=== PATIENT | female | born 1985 | race Caucasian/White ===

== ENCOUNTER 2016-09-27 10:59 | Emergency (ER) | payer SELFPAY ==
[~2016-09-27] VITALS: Ht 165.1 cm; Wt 97.5 kg
--- NOTE | 2016-09-27 11:11 | ED Upper Extremity ---
General Chief Complaint: Upper Extremity Stated Complaint: L ARM INJ Source: patient Exam Limitations: no limitations History of Present Illness Time seen by provider: 11:10 Initial Comments The chair she was sitting in a palpable liver backwards and struck her left elbow on the floor. She complains of left elbow pain. No other injury. Allergies and Home Medications Allergies Coded Allergies: No Known Drug Allergies (Unverified , 09/27/16) Home Medications No Active Prescriptions or Reported Meds Constitutional: no symptoms reported Musculoskeletal: joint pain Past Ehisqdo-Oangcy-Cakmdx Hx Patient Social History Alcohol Use: Denies Use Recreational Drug Use: No Smoking Status: Never a Smoker 2nd Hand Smoke Exposure: No Recent Foreign Travel: No Contact w/Someone Who Travel: No Recent Hopitalizations: No Immunizations Up To Date Tetanus Booster (TDap): Unknown Seasonal Allergies Seasonal Allergies: No Reviewed Nursing Assessment Reviewed/Agree w Nursing PMH: Yes Physical Exam Vital Signs Vital Sign - Last 12Hours 09/27/16 11:08 Temp 97.0 Pulse 106 Resp 18 B/P (MAP) 162/114 Pulse Ox 100 O2 Delivery Room Air Capillary Refill : General Appearance: WD/WN, mild distress Neck: supple Cardiovascular: regular rate, rhythm Respiratory: no respiratory distress Elbow/Forearm: bone tenderness (tender over entire elbow unable to move held in flexion.), pain, soft tissue tenderness, swelling Neurologic/Psychiatric: alert, normal mood/affect Skin: normal color Progress/Results/Core Measures Results/Orders My Orders Orders - ANALISA MARTINEZ MD Elbow, Left, 3 Views (09/27/16 11:10) Ibuprofen Tablet (Motrin Tablet) (09/27/16 11:15) Vital Signs/I&O Vital Sign - Last 12Hours 09/27/16 11:08 Temp 97.0 Pulse 106 Resp 18 B/P (MAP) 162/114 Pulse Ox 100 O2 Delivery Room Air Diagnostic Imaging Comments X-rays negative Departure Impression Impression: Primary Impression: Contusion of left elbow Disposition: 01 HOME, SELF-CARE Condition: Stable Departure-Patient Inst. Decision time for Depature: 11:25 Referrals: NO,LOCAL PHYSICIAN (PCP/Family) Primary Care Physician Patient Instructions: Contusion (DC) Add. Discharge Instructions: Ice and rest. If you may take diclofenac for pain unrelieved with over-the- counter medications. All discharge instructions reviewed with patient and/or family. Voiced understanding. Scripts Diclofenac Sodium (Diclofenac Sodium) 50 Mg Tablet. 50 MG PO BID Y for PAIN-SEVERE, #10 TAB Prov: ANALISA MARTINEZ MD 09/27/16 ANALISA MARTINEZ MD Sep 27, 2016 11:11
[2016-09-27] MEDS ORDERED: IBUPROFEN TABLET 200 MG TAB PO ONE (11:15)
[2016-09-27] MEDS ORDERED: DICL50TA6 PO (11:26)
[2016-09-27 11:33] VITALS: BP 162/114
--- NOTE | 2016-09-27 11:49 | Diagnostic Imaging Report ---
EXAMINATION: Left elbow INDICATION: Injury elbow pain 3 views were obtained. There is a slightly impacted fracture of the lateral aspect of the radial neck. There is also a nondisplaced fracture extending through the articular surface of the lateral half of the radial head. No other fracture or acute bony abnormality is identified. The posterior fat-pad is not elevated on the lateral view. The soft tissues are unremarkable. IMPRESSION: There is a slightly impacted fracture of the lateral aspect of the radial neck and a nondisplaced fracture through the articular surface of the radial head. There is no acute bony abnormality noted otherwise. Dictated by: Dictated on workstation # [id number]
== END 2016-09-27 11:29 | disposition home or self-care (01) ==
LOC: ER 11:02
DX: S52.125A Nondisplaced fracture of head of left radius, initial encounter for closed fracture (principal); S52.132A Displaced fracture of neck of left radius, initial encounter for closed fracture; W07.XXXA Fall from chair, initial encounter; Y92.009 Unspecified place in unspecified non-institutional (private) residence as the place of occurrence of the external cause; Y99.8 Other external cause status
CPT/HCPCS: 73080; 99283

== ENCOUNTER 2019-03-17 13:01 | Emergency (ER) | payer SELFPAY ==
[~2019-03-17] VITALS: Ht 165.1 cm; Wt 108.6 kg
[~2019-03-17 13:01] MED LIST: DICL50TA6 PO
--- NOTE | 2019-03-17 13:20 | ED Chest Pain ---
General Chief Complaint: Chest Pain Stated Complaint: CP, SOA Source: patient Exam Limitations: no limitations History of Present Illness Date Seen by Provider: Mar 17, 2019 Time Seen by Provider: 13:10 Initial Comments 34-year-old female resents with pain in her upper chest that goes to her left neck. She reports that it comes and goes. She does report some mild shortness of breath. Patient reports that she has a fast heartbeat. That she was seen at the [facility] and had a negative EKG and sent over here due to her fast heartbeat and shortness of breath. She does report that about a month ago to 6 weeks ago she started a new control pill. She denies any posterior calf pain. She denies any nausea vomiting. She does not get diaphoretic. The pain did not radiate to her back or shoulders. She denies any cough, fevers or chills. Allergies and Home Medications Allergies Coded Allergies: No Known Drug Allergies (Unverified , 09/27/16) Home Medications Diclofenac Sodium 50 Mg Tablet.dr, 50 MG PO BID PRN for PAIN-SEVERE Prescribed by: ANALISA MARTINEZ on 09/27/16 1126 Patient Home Medication List Home Medication List Reviewed: Yes Review of Systems Review of Systems Constitutional: No chills, No fever EENTM: No Symptoms Reported Respiratory: Shortness of Air, SOA With Exertion Cardiovascular: Chest Pain Gastrointestinal: Denies Nausea, Denies Vomiting Genitourinary: No Symptoms Reported Musculoskeletal: see HPI Endocrine: No Symptoms Reported Hematologic/Lymphatic: No Symptoms Reported Past Hhuwywr-Khbpqx-Svlegn Hx Past Med/Social Hx: Reviewed Nursing Past Med/Soc Hx Patient Social History 2nd Hand Smoke Exposure: No Recent Foreign Travel: No Contact w/Someone Who Travel: No Recent Hopitalizations: No Immunizations Up To Date Tetanus Booster (TDap): Unknown Seasonal Allergies Seasonal Allergies: No Past Medical History Surgeries: No Respiratory: No Cardiac: No Neurological: No Genitourinary: No Gastrointestinal: No Musculoskeletal: No Endocrine: No HEENT: No Cancer: No Psychosocial: No Integumentary: No Physical Exam Vital Signs Vital Signs - First Documented 03/17/19 13:03 Temp 36.8 Pulse 116 Resp 18 B/P (MAP) 144/95 (111) Pulse Ox 99 O2 Delivery Room Air Capillary Refill : Height, Weight, BMI Height: 5'5.00" Weight: 215lbs. oz. 97.393229du; BMI Method:Stated General Appearance: No Apparent Distress, WD/WN HEENT: PERRL/EOMI Neck: Non Tender, Supple Respiratory: Chest Non Tender, Lungs Clear, Normal Breath Sounds Cardiovascular: No Edema, Normal Peripheral Pulses, Tachycardia Gastrointestinal: Non Tender Extremity: Normal Capillary Refill, No Calf Tenderness Neurologic/Psychiatric: Alert, Oriented x3, No Motor/Sensory Deficits, Normal Mood/Affect, software quality assurance analyst II-XII Norm as Tested Skin: Normal Color, Warm/Dry Progress/Results/Core Measures Results/Orders Lab Results Laboratory Tests Test 03/17/19 13:13 Range/Units White Blood Count 10.9 4.3-11.0 10^3/uL Red Blood Count 4.87 4.35-5.85 10^6/uL Hemoglobin 13.5 11.5-16.0 G/DL Hematocrit 42 35-52 % Mean Corpuscular Volume 85 80-99 FL Mean Corpuscular Hemoglobin 28 25-34 PG Mean Corpuscular Hemoglobin Concent 33 32-36 G/DL Red Cell Distribution Width 14.6 H 10.0-14.5 % Platelet Count 280 130-400 10^3/uL Mean Platelet Volume 11.6 H 7.4-10.4 FL Neutrophils (%) (Auto) 72 42-75 % Lymphocytes (%) (Auto) 22 12-44 % Monocytes (%) (Auto) 5 0-12 % Eosinophils (%) (Auto) 1 0-10 % Basophils (%) (Auto) 0 0-10 % Neutrophils # (Auto) 7.9 H 1.8-7.8 X 10^3 Lymphocytes # (Auto) 2.4 1.0-4.0 X 10^3 Monocytes # (Auto) 0.5 0.0-1.0 X 10^3 Eosinophils # (Auto) 0.1 0.0-0.3 10^3/uL Basophils # (Auto) 0.0 0.0-0.1 10^3/uL D-Dimer 0.34 0.00-0.49 UG/ML Sodium Level 139 135-145 MMOL/L Potassium Level 3.7 3.6-5.0 MMOL/L Chloride Level 103 98-107 MMOL/L Carbon Dioxide Level 22 21-32 MMOL/L Anion Gap 14 5-14 MMOL/L Blood Urea Nitrogen 8 7-18 MG/DL Creatinine 0.73 0.60-1.30 MG/DL Estimat Glomerular Filtration Rate > 60 BUN/Creatinine Ratio 11 Glucose Level 93 70-105 MG/DL Calcium Level 10.3 H 8.5-10.1 MG/DL Corrected Calcium 8.5-10.1 MG/DL Total Bilirubin 0.3 0.1-1.0 MG/DL Aspartate Amino Transf (AST/SGOT) 13 5-34 U/L Alanine Aminotransferase (ALT/SGPT) 8 0-55 U/L Alkaline Phosphatase 57 40-136 U/L Troponin I < 0.028 <0.028 NG/ML B-Type Natriuretic Peptide < 10.0 <100.0 PG/ML Total Protein 8.7 H 6.4-8.2 GM/DL Albumin 4.8 H 3.2-4.5 GM/DL Thyroid Stimulating Hormone (TSH) 1.09 0.35-4.94 UIU/ML My Orders Orders - VELAANALY L DO Chest Pa/Lat (2 View) (03/17/19 13:12) Cbc With Automated Diff (03/17/19 13:12) Comprehensive Metabolic Panel (03/17/19 13:12) Fibrin Degradation Products (03/17/19 13:12) Thyroid Stimulating Hormone (03/17/19 13:12) Troponin I (03/17/19 13:12) Ekg Tracing (03/17/19 13:12) BNP (03/17/19 13:24) Lidocaine 2% Viscous 15 Ml (Xylocaine Vi (03/17/19 14:15) Antacid Suspension (Mylanta Suspension (03/17/19 14:15) Vital Signs/I&O 03/17/19 03/17/19 13:03 13:03 Temp 36.8 Pulse 116 Resp 18 B/P (MAP) 144/95 (111) Pulse Ox 99 O2 Delivery Room Air Room Air Progress Progress Note : Time: :19 Progress Note Patient with negative troponin, no acute EKG findings. Negative chest x-ray, negative d-dimer. Discussed with her that at this time since this has been going on and off for at least a week or 2 that is likely not an acute cardiac event. I did recommend she follow-up with her primary care provider if her symptoms continue a they consider a cardiology consult and possibly outpatient echocardiogram. Patient did ask if stress could cause these symptoms since she is under some stress. She also wonders if it could because by her switching control since it started shortly after her new control pill. I did discuss with her that those are both possibilities however I recommend she follow up just to ensure that symptoms are improving and that further outpatient evaluation is not warranted Initial ECG Impression Date: Mar 17, 2019 Initial ECG Impression Time: 10:00 Initial ECG Rhythm: S.Tach Initial ECG Intervals: Normal Initial ECG Impression: Normal Diagnostic Imaging Diagonstic Imaging: Xray Plain Films/CT/US/NM/MRI: chest Reviewed: Reviewed by Me, Reviewed/Discussed Departure Impression Primary Impression: Chest pain Qualified Codes: R07.9 - Chest pain, unspecified Disposition: 01 HOME, SELF-CARE Condition: Stable Departure-Patient Inst. Referrals: [facility] (PCP/Family) Primary Care Physician Patient Instructions: Chest Pain That Is Not Caused by the Heart (DC), Chest Pain (DC) Add. Discharge Instructions: Follow-up with your primary care provider next week for recheck of symptoms, return to the ER if symptoms worsen. All discharge instructions reviewed with patient and/or family. Voiced understanding. ANALY VELA DO Mar 17, 2019 13:20 POS
[2019-03-17 13:23] LABS: BASOPHILS % (AUTO) 0 % (0-10); EOSINOPHILS # (AUTO) 0.1 10^3/uL (0.0-0.3); EOSINOPHILS % (AUTO) 1 % (0-10); HEMATOCRIT 42 % (35-52); HEMOGLOBIN 13.5 G/DL (11.5-16.0); LYMPHOCYTES # (AUTO) 2.4 X 10^3 (1.0-4.0); LYMPHOCYTES % (AUTO) 22 % (12-44); MEAN CORPUSCULAR HEMOGLOBIN 28 PG (25-34); MEAN CORPUSCULAR HGB CONC 33 G/DL (32-36); MEAN CORPUSCULAR VOLUME 85 FL (80-99); MEAN PLATELET VOLUME 11.6 FL (7.4-10.4); MONOCYTES # (AUTO) 0.5 X 10^3 (0.0-1.0); MONOCYTES % (AUTO) 5 % (0-12); NEUTROPHILS # (AUTO) 7.9 X 10^3 (1.8-7.8); NEUTROPHILS % (AUTO) 72 % (42-75); PLATELET COUNT 280 10^3/uL (130-400); RED CELL DISTRIBUTION WIDTH 14.6 % (10.0-14.5); WHITE BLOOD COUNT 10.9 10^3/uL (4.3-11.0)
[2019-03-17 13:40] LABS: ALANINE AMINOTRANSFERASE 8 U/L (0-55); ALBUMIN 4.8 GM/DL (3.2-4.5); ALKALINE PHOSPHATASE 57 U/L (40-136); BILIRUBIN,TOTAL 0.3 MG/DL (0.1-1.0); BUN/CREATININE RATIO 11; CALCIUM 10.3 MG/DL (8.5-10.1); CARBON DIOXIDE 22 MMOL/L (21-32); CHLORIDE 103 MMOL/L (98-107); CREATININE SERUM 0.73 MG/DL (0.60-1.30); GFR ESTIMATED > 60; GLUCOSE 93 MG/DL (70-105); POTASSIUM 3.7 MMOL/L (3.6-5.0); SODIUM 139 MMOL/L (135-145); TOTAL PROTEIN 8.7 GM/DL (6.4-8.2)
--- NOTE | 2019-03-17 13:49 | Diagnostic Imaging Report ---
Indication: Mid chest pressure. Time of exam: 1:47 PM No prior studies are available for comparison. The heart size is normal. The pulmonary vascularity is unremarkable. The lungs are clear. No infiltrate, effusion or pneumothorax is detected. Impression: No acute cardiopulmonary process is detected. Dictated by: Dictated on workstation # [id number]
[2019-03-17] MEDS ORDERED: ANTACID SUSP 30 ML UDC (MYLANTA) PO ONE (14:15)
[2019-03-17] MEDS ORDERED: LIDOCAINE 2% VISCOUS 15 ML UDC PO ONE (14:15)
[2019-03-17 15:10] VITALS: BP 151/90
== END 2019-03-17 15:11 | disposition home or self-care (01) ==
LOC: EDUNIT# 13:01 → ER 13:03
DX: R07.9 Chest pain, unspecified (principal)
CPT/HCPCS: 36415; 71046; 80053; 83880; 84443; 84484; 85025; 85379; 93005